=== PATIENT | female | born 1995 | race African-American/Black ===

== ENCOUNTER 2017-09-27 11:15 | Emergency (ER) | payer SELFPAY ==
[~2017-09-27] VITALS: Ht 175.3 cm; Wt 113.5 kg
[~2017-09-27 11:15] MED LIST: GUAI100S6 PO; ZITH250T PO; ZOFR4TAB3 SL
[2017-09-27 11:16] VITALS: BP 177/103; PULSE 102; RESP 20; TEMP 98.5; O2SAT 100
[2017-09-27 12:15] VITALS: BP 152/59; PULSE 106; RESP 18; O2SAT 100
[2017-09-27 12:50] LABS: AUTOMATED NEUTROPHIL # 7.8 TH/MM3 (1.8-7.7); BASOPHIL # 0.1 TH/MM3 (0-0.2); BASOPHIL % 0.6 % (0.0-2.0); EOSINOPHIL # 0.1 TH/MM3 (0-0.4); EOSINOPHIL % 0.7 % (0.0-4.0); HEMATOCRIT 36.9 % (35.0-46.0); HEMOGLOBIN 12.3 GM/DL (11.6-15.3); LYMPH % 22.9 % (9.0-44.0); LYMPHOCYTE # 2.5 TH/MM3 (1.0-4.8); MEAN CELL VOLUME 84.5 FL (80.0-100.0); MEAN CORPUSCULAR HEMOGLOBIN 28.1 PG (27.0-34.0); MEAN CORPUSCULAR HGB CONC 33.2 % (32.0-36.0); MEAN PLATELET VOLUME 7.6 FL (7.0-11.0); MONO % 5.7 % (0.0-8.0); MONOCYTE # 0.6 TH/MM3 (0-0.9); NEUT % 70.1 % (16.0-70.0); PLATELET COUNT 389 TH/MM3 (150-450); RED BLOOD COUNT 4.37 MIL/MM3 (4.00-5.30); RED CELL DISTRIBUTION WIDTH 12.7 % (11.6-17.2); WHITE BLOOD COUNT 11.1 TH/MM3 (4.0-11.0)
--- NOTE | 2017-09-27 12:55 | PD ---
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 The patient has a history of irregular menstrual cycles, states her last menstrual cycle was approximately one year ago. The patient then started having vaginal bleeding 3 weeks ago which she describes as heavy with clots at times. She also complains of lower abdominal pain and cramping. The patient took one of her mothers hydrocodone earlier today which did alleviate her symptoms. The patient does have a history of irregular menstrual cycles. She denies previous , denies previous sexual activity or previous pelvic examination. She denies any known history of polycystic ovarian syndrome or hypothyroidism. She denies any dysuria, frequency, urgency. She denies any nausea, vomiting, or upper abdominal pain. PFSH Past Medical History Cardiovascular Problems: No Gastrointestinal Disorders: No Neurologic: No Respiratory: No Immunizations Current: Yes ?: Not : 0 Past Surgical History Surgical History: No Previous Surgery Oral Surgery: Yes (TEETH PULLED) Other Surgery: No (NO SURGERIES) Social History Alcohol Use: No Tobacco Use: No Substance Use: No Allergies-Medications (Allergen,Severity, Reaction): Coded Allergies: No Known Allergies (Verified Adverse Reaction, Unknown, 09/27/17) Reported Meds & Prescriptions Reported Meds & Active Scripts Active No Active Prescriptions or Reported Medications Review of Systems Except as stated in HPI: all other systems reviewed are Neg General / Constitutional: No: Fever HENT: No: Lightheadedness Gastrointestinal: No: Nausea, Vomiting, Diarrhea, Abdominal Pain Genitourinary: Positive: Pelvic Pain, Dysmenorrhea, Menorrhagia, Metorrhagia, Vaginal Bleeding, No: Dysuria Musculoskeletal: No: Weakness Neurologic: No: Dizziness Physical Exam Narrative GENERAL: Awake, alert, pleasant 22-year-old female who appears her stated age and is in no acute respiratory distress. SKIN: Focused skin assessment warm/dry. HEAD: Atraumatic. Normocephalic. EYES: No injection or drainage. ENT: No nasal bleeding or discharge. Mucous membranes pink and moist. NECK: Trachea midline. No JVD. GASTROINTESTINAL: Abdomen soft, obese, no rebound tenderness. Genitourinary: Deferred MUSCULOSKELETAL: No obvious deformities. No clubbing. No cyanosis. No edema. NEUROLOGICAL: Awake and alert. No obvious cranial nerve deficits. Motor grossly within normal limits. Normal speech. Nonfocal. PSYCHIATRIC: Appropriate mood and affect; insight and judgment normal. Data Data Last Documented VS Vital Signs Date Time Temp Pulse Resp B/P (MAP) Pulse Ox O2 Delivery O2 Flow Rate FiO2 09/27/17 12:15 106 18 152/59 (90) 100 Room Air 09/27/17 11:16 98.5 Orders Orders Complete Blood Count With Diff (09/27/17 11:32) Basic Metabolic Panel (Bmp) (09/27/17 11:32) Urinalysis - C+S If Indicated (09/27/17 11:32) Ed Urine Pregnancytest Poc (09/27/17 11:32) Thyroid Stimulating Hormone (09/27/17 12:30) Urine Culture (09/27/17 12:00) Labs Laboratory Tests Test 09/27/17 11:50 09/27/17 12:00 White Blood Count 11.1 TH/MM3 Red Blood Count 4.37 MIL/MM3 Hemoglobin 12.3 GM/DL Hematocrit 36.9 % Mean Corpuscular Volume 84.5 FL Mean Corpuscular Hemoglobin 28.1 PG Mean Corpuscular Hemoglobin Concent 33.2 % Red Cell Distribution Width 12.7 % Platelet Count 389 TH/MM3 Mean Platelet Volume 7.6 FL Neutrophils (%) (Auto) 70.1 % Lymphocytes (%) (Auto) 22.9 % Monocytes (%) (Auto) 5.7 % Eosinophils (%) (Auto) 0.7 % Basophils (%) (Auto) 0.6 % Neutrophils # (Auto) 7.8 TH/MM3 Lymphocytes # (Auto) 2.5 TH/MM3 Monocytes # (Auto) 0.6 TH/MM3 Eosinophils # (Auto) 0.1 TH/MM3 Basophils # (Auto) 0.1 TH/MM3 CBC Comment DIFF FINAL Differential Comment Blood Urea Nitrogen 15 MG/DL Creatinine 0.80 MG/DL Random Glucose 94 MG/DL Calcium Level 9.4 MG/DL Sodium Level 138 MEQ/L Potassium Level 3.8 MEQ/L Chloride Level 107 MEQ/L Carbon Dioxide Level 25.0 MEQ/L Anion Gap 6 MEQ/L Estimat Glomerular Filtration Rate 108 ML/MIN Thyroid Stimulating Hormone 3rd Gen 2.560 uIU/ML Urine Color RED Urine Turbidity TURBID Urine pH 6.0 Urine Specific [place] 1.030 Urine Protein 100 mg/dL Urine Glucose (UA) NEG mg/dL Urine Ketones NEG mg/dL Urine Occult Blood LARGE Urine Nitrite NEG Urine Bilirubin NEG Urine Urobilinogen LESS THAN 2.0 MG/DL Urine Leukocyte Esterase NEG Urine RBC /hpf Urine WBC 61 /hpf Urine Squamous Epithelial Cells 2 /hpf Urine Bacteria MOD /hpf Urine Mucus FEW /lpf Microscopic Urinalysis Comment CULTURE INDICATED MDM Medical Decision Making Medical Screen Exam Complete: Yes Emergency Medical Condition: Yes Medical Record Reviewed: Yes Interpretation(s) Laboratory Tests Test 09/27/17 11:50 09/27/17 12:00 White Blood Count 11.1 TH/MM3 Red Blood Count 4.37 MIL/MM3 Hemoglobin 12.3 GM/DL Hematocrit 36.9 % Mean Corpuscular Volume 84.5 FL Mean Corpuscular Hemoglobin 28.1 PG Mean Corpuscular Hemoglobin Concent 33.2 % Red Cell Distribution Width 12.7 % Platelet Count 389 TH/MM3 Mean Platelet Volume 7.6 FL Neutrophils (%) (Auto) 70.1 % Lymphocytes (%) (Auto) 22.9 % Monocytes (%) (Auto) 5.7 % Eosinophils (%) (Auto) 0.7 % Basophils (%) (Auto) 0.6 % Neutrophils # (Auto) 7.8 TH/MM3 Lymphocytes # (Auto) 2.5 TH/MM3 Monocytes # (Auto) 0.6 TH/MM3 Eosinophils # (Auto) 0.1 TH/MM3 Basophils # (Auto) 0.1 TH/MM3 CBC Comment DIFF FINAL Differential Comment Blood Urea Nitrogen 15 MG/DL Creatinine 0.80 MG/DL Random Glucose 94 MG/DL Calcium Level 9.4 MG/DL Sodium Level 138 MEQ/L Potassium Level 3.8 MEQ/L Chloride Level 107 MEQ/L Carbon Dioxide Level 25.0 MEQ/L Anion Gap 6 MEQ/L Estimat Glomerular Filtration Rate 108 ML/MIN Thyroid Stimulating Hormone 3rd Gen 2.560 uIU/ML Urine Color RED Urine Turbidity TURBID Urine pH 6.0 Urine Specific [place] 1.030 Urine Protein 100 mg/dL Urine Glucose (UA) NEG mg/dL Urine Ketones NEG mg/dL Urine Occult Blood LARGE Urine Nitrite NEG Urine Bilirubin NEG Urine Urobilinogen LESS THAN 2.0 MG/DL Urine Leukocyte Esterase NEG Urine RBC /hpf Urine WBC 61 /hpf Urine Squamous Epithelial Cells 2 /hpf Urine Bacteria MOD /hpf Urine Mucus FEW /lpf Microscopic Urinalysis Comment CULTURE INDICATED Differential Diagnosis Differential diagnosis includes dysmenorrhea, menorrhagia, polycystic ovarian syndrome, , ectopic , threatened AB, hypothyroidism. Narrative Course Labs are drawn and sent. TSH was sent to lab. Bedside UA test was negative. 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 Return if symptoms worsen or progress. Please provide a patient a copy of her labs at discharge. Follow-up with her primary physician. Return if symptoms worsen or progress. Med/Other Pt SpecificInfo: No Change to Meds Scripts No Active Prescriptions or Reported Meds Disposition: 01 DISCHARGE HOME Condition: Stable Kendall Gill MD Sep 27, 2017 12:55
[2017-09-27 13:07] LABS: CALCIUM 9.4 MG/DL (8.5-10.1); CREATININE 0.8 MG/DL (0.50-1.00)
[2017-09-27 13:41] LABS: BACTERIA, URINE MOD /hpf; BILIRUBIN, URINE NEG (NEG); BLOOD, URINE LARGE (NEG); GLUCOSE,URINE NEG (NEG); KETONE, URINE NEG (NEG); MUCUS URINE FEW /lpf (OCC); NITRITE,URINE NEG (NEG); SQUAMOUS EPITHELIAL CELL URINE 2 /hpf (0-5); URINE LEUKOCYTE ESTERASE NEG (NEG)
[2017-09-27 13:42] LABS: URINE COLOR RED (YELLW/STRAW)
[2017-09-27] MEDS ORDERED: BACT800T5 PO (14:23)
[2017-09-27 14:34] VITALS: BP 140/65; PULSE 90; RESP 18; O2SAT 100
== END 2017-09-27 14:34 | disposition home or self-care (01) ==
LOC: NEPD 11:15
DX: N92.1 Excessive and frequent menstruation with irregular cycle (principal); N39.0 Urinary tract infection, site not specified
CPT/HCPCS: 80048; 81001; 84443; 84703; 85025; 87086; 99283